=== PATIENT | female | born 1960 | race Caucasian/White ===

== ENCOUNTER 2023-08-10 20:25 | Emergency (ER) | payer BC ==
[~2023-08-10 20:25] MED LIST: Iopamidol 300 61% 100 ML VIAL FS ONE
[2023-08-10] MEDS ORDERED: Ondansetron PF 4 MG/2 ML Vial ONE (21:01)
[2023-08-10 21:13] LABS: #Basophils 0.1 10x3/uL (0.0-0.2); #Eosinphils 0.1 10x3/uL (0.0-0.5); #Monocytes 0.8 10x3/uL (0.0-1.1); #Neutrophils 4.1 10x3/uL (1.5-8.4); %Basophils 0.9 % (0.0-2.0); %Eosinophils 1.2 % (0.0-6.0); %Lymphocytes 31.6 % (18.0-47.0); Hematocrit 42.1 % (34.9-44.5); Hemoglobin 14.8 g/dL (12.0-15.5); Mean Corpuscular HGB CONC 35.2 g/dL (32.0-36.0); Mean Corpuscular Volume 85.2 fl (81.6-98.3); Mean Platelet Volume 11.1 fl (7.4-10.4); Platelet Count 279 10x3/uL (150-450); RBC Distribution Width 12.7 % (11.5-14.5); Red Blood Cell (RBC) Count 4.94 10x6/uL (3.90-5.03); White Blood Cell (WBC) Count 7.4 10x3/uL (3.5-10.5)
[2023-08-10 21:21] LABS: ALT (SGPT) 189 U/L (8-55); AST (SGOT) 92 U/L (5-34); Albumin 4.5 g/dL (3.4-4.8); Alkaline Phosphatase 69 U/L (40-110); Anion Gap 18 mmol/L (10-20); BUN (Urea Nitrogen) 36 mg/dL (9.8-20.1); Bilirubin, Total 1.3 mg/dL (0.2-1.2); Calc. Creatinine Clearance 0 mL/min (70-130); Calcium 10.1 mg/dL (7.8-10.44); Carbon Dioxide 36 mmol/L (23-31); Chloride 86 mmol/L (98-107); Estimated GFR 42; Globulin 2.9 g/dL (2.4-3.5); Glucose 122 mg/dL (80-115); Lipase 50 U/L (8-78); Potassium 2.8 mmol/L (3.5-5.1); Protein, Total 7.4 g/dL (5.8-8.1); Sodium 137 mmol/L (136-145)
[2023-08-10] MEDS ORDERED: Potassium Chloride 20 MEQ TAB ONE (22:25)
[2023-08-10 23:41] LABS: Bilirubin Neg (Negative); Blood, Urine Negative (Negative); Clarity Clear (Clear); Glucose, Urine (Dipstick) Normal (Negative); Ketone, Urine Negative (Negative); Leukocyte Negative (Negative); Nitrite Negative (Negative); Protein, Urine (Dipstick) Negative (Neg-Trace); Specific Gravity, Urine 1.015 (1.005-1.030); Urobilinogen Normal mg/dL (Less than 2)
[2023-08-10] MEDS ORDERED: Piperacillin/Tazobactam 4.5 GM VIAL ONE (23:56)
[2023-08-10] MEDS ORDERED: Heparin 25,000 units/D5W 500 ML ONE (23:57)
[2023-08-11 00:12] LABS: Bacteria/HPF None Seen HPF (None Seen); CAUTI Indications for Culture Dysuria,urgency,freq; RBC/HPF 0-3 HPF (0-3); Squamous Epithelial 0-3 HPF (0-3); Urine Culture Reflex No No; WBC/HPF 0-3 HPF (0-3)
[2023-08-11 00:24] LABS: INR-International Normal Ratio 1.1; PTT 26.7 sec (22.0-33.0); Prothrombin Time 11.9 sec (9.5-12.1)
[2023-08-11] MEDS ORDERED: Heparin 10,000 UNITS/ 10 ML VIAL ONE (00:34)
== END 2023-08-11 02:04 | disposition short-term general hospital (02) ==
LOC: CSHERS 20:25
DX: R11.2 Nausea with vomiting, unspecified (principal); E86.0 Dehydration; N17.9 Acute kidney failure, unspecified; E87.6 Hypokalemia; K86.9 Disease of pancreas, unspecified; I10 Essential (primary) hypertension; F41.9 Anxiety disorder, unspecified; F32.A Depression, unspecified; Z79.01 Long term (current) use of anticoagulants; Z79.82 Long term (current) use of aspirin; Z79.899 Other long term (current) drug therapy
CPT/HCPCS: 36415; 74177; 76705; 80053; 81001; 83605; 83690; 85025; 85610; 85730; 93005; J1644; J2405; J2543; Q9967